=== PATIENT | male | born 1990 | race Caucasian/White ===

== ENCOUNTER 2020-07-21 14:09 | Outpatient (CLI) | payer OTHER | END 2020-07-21 14:10 | disposition home or self-care (01) | LOC: COV 14:09 | PROVIDERS: ATTEND Family Medicine | DX: Z20.822 Contact with and (suspected) exposure to COVID-19 (principal) ==

== ENCOUNTER 2020-09-15 13:33 | Outpatient (CLI) | payer OTHER ==
--- NOTE | 2020-09-15 14:00 | XRAY Report ---
PROCEDURE: Ankle 3 View RT INDICATIONS: RIGHT ANKLE SPRAIN TECHNIQUE: 3 views of the ankle were acquired. COMPARISON: None FINDINGS: Bones: No fractures or dislocations. Ankle mortise is normally aligned. No suspicious bony lesions . Soft tissues: No tibiotalar joint effusion. Achilles tendon appears normal. IMPRESSION: No acute fracture. No osseous lesion. If symptoms and/or clinical suspicion for patholog y continue, further assessment with repeat plain films, or advanced imaging (e.g., CT, MRI, or bone s can) is recommended for further assessment. Reviewed by: Mckay Ahuja MD on 09/15/2020 1:59 PM PDT Approved by: Mckay Ahuja MD on 09/15/2020 1:59 PM PDT Station ID: [id number]
--- NOTE | 2020-09-15 16:54 | XRAY Report ---
PROCEDURE: Calcaneus RT INDICATIONS: RIGHT ANKLE SPRAIN TECHNIQUE: Two views of the calcaneus were acquired. COMPARISON: None FINDINGS: Bones: No fractures or dislocations. No suspicious bony lesions. Os trigonum noted. Soft tissues: No suspicious calcifications. Achilles tendon appears normal. IMPRESSION: No fracture. No osseous lesion. If there are persistent symptoms or continued clinical concern for pa thology, then repeat plain film radiographs (7-10 days) or advanced imaging (CT, MR, bone scan) shoul d be considered for further evaluation. Reviewed by: Courtney Vega MD, PhD on 09/15/2020 4:53 PM PDT Approved by: Courtney Vega MD, PhD on 09/15/2020 4:53 PM PDT Station ID: [id number]
== END 2020-09-15 23:59 | disposition home or self-care (01) ==
LOC: DI.S 13:33
PROVIDERS: ATTEND Emergency Medicine
DX: S93.491A Sprain of other ligament of right ankle, initial encounter (principal)